=== PATIENT | female | born 1975 | race Caucasian/White ===

== ENCOUNTER → 2020-11-11 | Outpatient (CLI) | payer MEDICARE ==
[~2020-11-11] MED LIST: BENTYL 20MG TAB20 MG PO; IBU800 MG PO; LAMICTAL100 MG PO; LODINE CAP 300300 MG PO; LOPRESSOR50 MG PO; MACROBID 100 M100 M1 PO; MELATONIN10 M2 PO; NAPROSYN500 MG PO; NEURONTIN600 MG PO; NORFLEX 100 MG100 MG PO; PREDNISONE 50 M50 MG PO; PRISTIQ 50 MG T50 MG PO; PROTONIX40 MG PO; PYRIDIUM200 MG PO; SEROQUEL300 MG PO; VOLTAREN GEL 1% TOP; Voltaren Gel 1% TOP; ZANAFLEX4 MG PO; ZOFRAN ODT 4 MG4 MG PO
== END ==
LOC: KOH-I 08:34
DX: S92.352A Displaced fracture of fifth metatarsal bone, left foot, initial encounter for closed fracture (principal); X58.XXXA Exposure to other specified factors, initial encounter
CPT/HCPCS: 73630

== ENCOUNTER → 2020-12-02 | Outpatient (CLI) | payer MEDICARE | LOC: KOH-I 08:29 | DX: S92.352A Displaced fracture of fifth metatarsal bone, left foot, initial encounter for closed fracture (principal); X58.XXXA Exposure to other specified factors, initial encounter | CPT/HCPCS: 73630 ==

== ENCOUNTER → 2020-12-10 | Outpatient (CLI) | payer MEDICARE | LOC: EMI 14:42 | DX: S92.352A Displaced fracture of fifth metatarsal bone, left foot, initial encounter for closed fracture (principal); S93.432A Sprain of tibiofibular ligament of left ankle, initial encounter; X58.XXXA Exposure to other specified factors, initial encounter; M77.32 Calcaneal spur, left foot; R93.7 Abnormal findings on diagnostic imaging of other parts of musculoskeletal system | CPT/HCPCS: 73721 ==

== ENCOUNTER → 2021-01-19 | Outpatient (CLI) | payer MEDICARE | LOC: KOH-I 09:29 | DX: S99.912A Unspecified injury of left ankle, initial encounter (principal); X58.XXXA Exposure to other specified factors, initial encounter | CPT/HCPCS: 73610; 73630 ==

== ENCOUNTER 2021-02-06 10:01 | Emergency (ER) | payer MEDICARE ==
[~2021-02-06 10:01] MED LIST changes: -IBU800 MG PO; -LAMICTAL100 MG PO; -LOPRESSOR50 MG PO; -MELATONIN10 M2 PO; -NAPROSYN500 MG PO; -NEURONTIN600 MG PO; -PRISTIQ 50 MG T50 MG PO; -PROTONIX40 MG PO; -SEROQUEL300 MG PO; -VOLTAREN GEL 1% TOP; -ZANAFLEX4 MG PO
[2021-02-06] MEDS ORDERED: NAPROSYN500 MG PO (11:11)
[2021-02-26] MEDS ORDERED: PRISTIQ 50 MG T50 MG PO (14:37)
[2021-02-26] MEDS ORDERED: PROTONIX40 MG PO (14:37)
[2021-02-26] MEDS ORDERED: NEURONTIN600 MG PO (14:56)
[2021-02-26] MEDS ORDERED: LOPRESSOR50 MG PO (14:56)
[2021-02-26] MEDS ORDERED: ZANAFLEX4 MG PO (14:57)
[2021-02-26] MEDS ORDERED: SEROQUEL300 MG PO (14:57)
[2021-02-26] MEDS ORDERED: LAMICTAL100 MG PO (14:57)
[2021-02-26] MEDS ORDERED: MELATONIN10 M2 PO (14:58)
[2021-02-26] MEDS ORDERED: IBU800 MG PO (14:58)
[2021-02-26] MEDS ORDERED: VOLTAREN GEL 1% TOP (14:59)
== END 2021-02-06 11:25 | disposition home or self-care (01) ==
LOC: ER1 10:01
DX: S69.92XA Unspecified injury of left wrist, hand and finger(s), initial encounter (principal); S63.502A Unspecified sprain of left wrist, initial encounter; S60.222A Contusion of left hand, initial encounter; I10 Essential (primary) hypertension; Z88.0 Allergy status to penicillin; W11.XXXA Fall on and from ladder, initial encounter
CPT/HCPCS: 73110; 73130; 99283

== ENCOUNTER → 2021-03-04 | Day surgery (SDC) | payer MEDICARE ==
[~2021-03-04] VITALS: Ht 162.6 cm; Wt 122.5 kg
[~2021-03-04] MED LIST changes: +IBU800 MG PO; +LAMICTAL100 MG PO; +LOPRESSOR50 MG PO; +MELATONIN10 M2 PO; +NAPROSYN500 MG PO; +NEURONTIN600 MG PO; +PRISTIQ 50 MG T50 MG PO; +PROTONIX40 MG PO; +SEROQUEL300 MG PO; +VOLTAREN GEL 1% TOP; +ZANAFLEX4 MG PO
[2021-03-04 07:11] LABS: HEMOGLOBIN 15.1 gm/dl (12.3-15.3); RED BLOOD COUNT 4.96 M/UL (4.00-5.10); WHITE BLOOD COUNT 8.1 K/UL (4.5-11.0)
[2021-03-04 08:19] LABS: BUN/CREATININE RATIO 17 (0-10)
== END | disposition home or self-care (01) ==
LOC: OR 06:38
PROVIDERS: Orthopaedic Surgery
DX: M65.311 Trigger thumb, right thumb (principal); M65.4 Radial styloid tenosynovitis [de Quervain]; I10 Essential (primary) hypertension; K21.9 Gastro-esophageal reflux disease without esophagitis; G40.909 Epilepsy, unspecified, not intractable, without status epilepticus; F41.9 Anxiety disorder, unspecified; F17.210 Nicotine dependence, cigarettes, uncomplicated; E66.01 Morbid (severe) obesity due to excess calories; Z88.0 Allergy status to penicillin; Z88.6 Allergy status to analgesic agent; Z79.899 Other long term (current) drug therapy
CPT/HCPCS: 36415; 80048; 85025; 93005; J0690; J1100; J1885; J2001; J2250; J2405; J2704; J3010; J7030; J7120

== ENCOUNTER 2021-09-07 08:23 | Emergency (ER) | payer MEDICARE ==
[2021-09-07 09:37] LABS: HEMOGLOBIN 14.7 gm/dl (12.3-15.3); RED BLOOD COUNT 4.53 M/UL (4.00-5.10)
[2021-09-07 10:02] LABS: BUN/CREATININE RATIO 27 (0-10)
[2021-09-07] MEDS ORDERED: ZITHROMAX250 MG PO (11:33)
== END 2021-09-07 12:45 | disposition home or self-care (01) ==
LOC: ER1 08:23
PROVIDERS: Student in an Organized Health Care Education/Training Program
DX: J44.1 Chronic obstructive pulmonary disease with (acute) exacerbation (principal); Z20.822 Contact with and (suspected) exposure to COVID-19; Z88.0 Allergy status to penicillin
CPT/HCPCS: 36600; 71045; 80053; 82550; 82553; 82803; 83874; 84484; 85025; 93005; 96365; 96366; 96375; 99285; J0456; J0696; J7030; U0002